=== PATIENT | male | born 1945 | race Caucasian/White ===

== ENCOUNTER 2016-09-03 10:03 | Outpatient (CLI) | payer MEDICARE, OTHER | END 2016-09-03 10:04 | disposition home or self-care (01) | DX: E78.5 Hyperlipidemia, unspecified (principal); E11.9 Type 2 diabetes mellitus without complications; I10 Essential (primary) hypertension ==

== ENCOUNTER 2016-12-17 13:21 | Outpatient (CLI) | payer MEDICARE, OTHER ==
[2016-12-17 19:00] LABS: HEMOGLOBIN A1C 0.9 g/dL
== END 2016-12-17 13:22 | disposition home or self-care (01) ==
LOC: LAB.N 13:21
PROVIDERS: ATTEND Nurse Practitioner Gerontology
DX: E11.9 Type 2 diabetes mellitus without complications (principal)
CPT/HCPCS: 36415; 83036

== ENCOUNTER 2017-05-05 23:56 | Outpatient (CLI) | payer MEDICARE, OTHER ==
[2017-05-05 13:00] LABS: CALCIUM 9.5 mg/dL (8.5-10.3)
[2017-05-05 13:38] LABS: HB2 TOTAL 15.7 g/dL; HEMOGLOBIN A1C 1.15 g/dL; HEMOGLOBIN A1C % 8.9 % (4.6-6.2)
== END 2017-05-05 23:57 | disposition home or self-care (01) ==
LOC: LAB.N 23:56
PROVIDERS: ATTEND Family Medicine
DX: E11.9 Type 2 diabetes mellitus without complications (principal); I10 Essential (primary) hypertension
CPT/HCPCS: 36415; 80048; 83036

== ENCOUNTER 2017-09-07 08:00 | Outpatient (CLI) | payer MEDICARE, OTHER ==
[2017-09-07 13:00] LABS: ALBUMIN 4.5 g/dL (3.2-5.5); ALBUMIN/GLOBULIN RATIO 1.4 (1.0-2.2); ALKALINE PHOSPHATASE 63 IU/L (42-121); ALT ALANINE AMINOTRANSFERASE 14 IU/L (10-60); AST ASPARTATE AMINOTRANSFERASE 18 IU/L (10-42); BILIRUBIN,TOTAL 1.2 mg/dL (0.2-1.0); BUN - BLOOD UREA NITROGEN 14 mg/dL (6-20); CALCIUM 9.1 mg/dL (8.5-10.3); CARBON DIOXIDE - CO2 27 mmol/L (21-32); CHLORIDE 100 mmol/L (101-111); CHOLESTEROL 102 mg/dL; CREATININE 0.7 mg/dL (0.6-1.2); GFR - MDRD 111 (>89); GLUCOSE 142 mg/dL (70-100); HDL CHOLESTEROL 34 mg/dL; LDL CHOLESTEROL,CALCULATED 48 mg/dL; LDL/HDL RATIO 1.4 (<3.6); SODIUM 135 mmol/L (135-145); TOTAL PROTEIN 7.7 g/dL (6.7-8.2); VLDL CHOLESTEROL 20 mg/dL
[2017-09-07 13:07] LABS: BASOPHILS # (AUTO) 0.1 10^3/uL (0.0-0.1); BASOPHILS % (AUTO) 0.6 %; EOSINOPHILS # (AUTO) 0.2 10^3/uL (0.0-0.7); EOSINOPHILS % (AUTO) 1.2 %; HEMOGLOBIN A1C 1.1 g/dL; HEMOGLOBIN A1C % 8.4 % (4.6-6.2); HGB - HEMOGLOBIN 14.1 g/dL (14.0-18.0); LYMPHOCYTES # (AUTO) 1.2 10^3/uL (1.5-3.5); LYMPHOCYTES % (AUTO) 9.2 %; MEAN CORPUSCULAR HEMOGLOBIN 20.8 pg (27.0-31.0); MEAN CORPUSCULAR HGB CONC 31.1 g/dL (32.0-36.0); MEAN PLATELET VOLUME 8.9 fL (7.4-11.4); MONOCYTES # (AUTO) 1.3 10^3/uL (0.0-1.0); MONOCYTES % (AUTO) 9.5 %; NEUTROPHILS # (AUTO) 10.7 10^3/uL (1.5-6.6); NEUTROPHILS % (AUTO) 79.5 %; PLT - PLATELET COUNT 275 10^3/uL (130-450); RED BLOOD COUNT 6.79 10^6/uL (4.70-6.10); RED CELL DISTRIBUTION WIDTH 16.2 % (12.0-15.0); WHITE BLOOD COUNT 13.5 x10^3/uL (4.8-10.8)
== END 2017-09-07 08:01 | disposition home or self-care (01) ==
LOC: LAB.N 08:00
PROVIDERS: ATTEND Family Medicine
DX: E11.9 Type 2 diabetes mellitus without complications (principal); I10 Essential (primary) hypertension; E78.5 Hyperlipidemia, unspecified; Z79.4 Long term (current) use of insulin
CPT/HCPCS: 36415; 80053; 80061; 83036; 83721; 85025

== ENCOUNTER 2017-10-07 08:00 | Outpatient (CLI) | payer MEDICARE, OTHER ==
[2017-10-07 12:50] LABS: BASOPHILS # (AUTO) 0.1 10^3/uL (0.0-0.1); BASOPHILS % (AUTO) 1.2 %; EOSINOPHILS # (AUTO) 0.3 10^3/uL (0.0-0.7); EOSINOPHILS % (AUTO) 3.2 %; LYMPHOCYTES # (AUTO) 1.3 10^3/uL (1.5-3.5); LYMPHOCYTES % (AUTO) 14.5 %; MEAN CORPUSCULAR HEMOGLOBIN 21.1 pg (27.0-31.0); MEAN CORPUSCULAR HGB CONC 30.6 g/dL (32.0-36.0); MEAN CORPUSCULAR VOLUME 68.8 fL (80.0-94.0); MEAN PLATELET VOLUME 8.9 fL (7.4-11.4); MEAN RETIC VALUE 98.5; MONOCYTES # (AUTO) 0.8 10^3/uL (0.0-1.0); MONOCYTES % (AUTO) 8.6 %; NEUTROPHILS # (AUTO) 6.6 10^3/uL (1.5-6.6); NEUTROPHILS % (AUTO) 72.5 %; PLT - PLATELET COUNT 254 10^3/uL (130-450); RED BLOOD COUNT 6.64 10^6/uL (4.70-6.10); RED CELL DISTRIBUTION WIDTH 16.4 % (12.0-15.0); WHITE BLOOD COUNT 9.1 x10^3/uL (4.8-10.8)
[2017-10-07 13:19] LABS: % IRON SATURATION 29 % (20-50); IRON 82 ug/dL (45-182); TOTAL IRON BINDING CAPACITY 284 ug/dL (250-450); TRANSFERRIN 203 mg/dL (180-329)
[2017-10-07 15:32] LABS: FERRITIN 144.4 ng/mL (23.9-336.2)
[2017-10-07 15:36] LABS: FOLATE 12.7 ng/mL (5.90 - >24.8)
== END 2017-10-07 23:59 | disposition home or self-care (01) ==
LOC: LAB.N 08:00
PROVIDERS: ATTEND Family Medicine
DX: D64.9 Anemia, unspecified (principal)
CPT/HCPCS: 36415; 82607; 82728; 82746; 83540; 84466; 85025; 85044

== ENCOUNTER 2017-12-16 08:00 | Outpatient (CLI) | payer MEDICARE, OTHER ==
[2017-12-16 12:18] LABS: CALCIUM 9.1 mg/dL (8.5-10.3); CREATININE 0.9 mg/dL (0.6-1.2)
[2017-12-16 12:25] LABS: BASOPHILS # (AUTO) 0.1 10^3/uL (0.0-0.1); BASOPHILS % (AUTO) 0.9 %; EOSINOPHILS # (AUTO) 0.3 10^3/uL (0.0-0.7); EOSINOPHILS % (AUTO) 3.2 %; HGB - HEMOGLOBIN 14.2 g/dL (14.0-18.0); LYMPHOCYTES # (AUTO) 1.5 10^3/uL (1.5-3.5); LYMPHOCYTES % (AUTO) 15.4 %; MEAN CORPUSCULAR HEMOGLOBIN 21.2 pg (27.0-31.0); MEAN CORPUSCULAR HGB CONC 31.7 g/dL (32.0-36.0); MEAN CORPUSCULAR VOLUME 66.9 fL (80.0-94.0); MONOCYTES # (AUTO) 1.1 10^3/uL (0.0-1.0); MONOCYTES % (AUTO) 10.6 %; NEUTROPHILS % (AUTO) 69.9 %; PLT - PLATELET COUNT 270 10^3/uL (130-450); RED BLOOD COUNT 6.69 10^6/uL (4.70-6.10); RED CELL DISTRIBUTION WIDTH 16.4 % (12.0-15.0)
[2017-12-16 13:26] LABS: HB2 TOTAL 15.6 g/dL; HEMOGLOBIN A1C 1.13 g/dL; HEMOGLOBIN A1C % 8.8 % (4.6-6.2)
== END 2017-12-16 08:01 ==
LOC: LAB.N 08:00
PROVIDERS: ATTEND Family Medicine
DX: E11.9 Type 2 diabetes mellitus without complications (principal); Z79.4 Long term (current) use of insulin; D72.89 Other specified disorders of white blood cells
CPT/HCPCS: 36415; 80048; 83036; 85025

== ENCOUNTER 2018-04-07 08:42 | Outpatient (CLI) | payer MEDICARE, OTHER ==
[2018-04-07 13:47] LABS: CALCIUM 8.7 mg/dL (8.5-10.3); CREATININE 0.9 mg/dL (0.6-1.2)
[2018-04-07 13:55] LABS: HB2 TOTAL 14.6 g/dL; HEMOGLOBIN A1C 0.96 g/dL; HEMOGLOBIN A1C % 8.2 % (4.6-6.2)
== END 2018-04-07 23:59 | disposition home or self-care (01) ==
LOC: LAB.N 08:42
PROVIDERS: ATTEND Family Medicine
DX: D50.9 Iron deficiency anemia, unspecified (principal); E11.9 Type 2 diabetes mellitus without complications
CPT/HCPCS: 36415; 80048; 82728; 83036

== ENCOUNTER 2018-07-20 08:00 | Outpatient (CLI) | payer MEDICARE, OTHER ==
[2018-07-20 13:25] LABS: CALCIUM 9.2 mg/dL (8.5-10.3)
[2018-07-20 13:41] LABS: HB2 TOTAL 15.1 g/dL; HEMOGLOBIN A1C 1.07 g/dL; HEMOGLOBIN A1C % 8.6 % (4.6-6.2)
[2018-07-20 13:52] LABS: BASOPHILS # (AUTO) 0.2 10^3/uL (0.0-0.1); BASOPHILS % (AUTO) 2.1 %; EOSINOPHILS # (AUTO) 0.4 10^3/uL (0.0-0.7); EOSINOPHILS % (AUTO) 3.9 %; HGB - HEMOGLOBIN 13.8 g/dL (14.0-18.0); LYMPHOCYTES # (AUTO) 1.9 10^3/uL (1.5-3.5); LYMPHOCYTES % (AUTO) 21.1 %; MEAN CORPUSCULAR HEMOGLOBIN 20.9 pg (27.0-31.0); MEAN CORPUSCULAR HGB CONC 31.2 g/dL (32.0-36.0); MEAN PLATELET VOLUME 8.9 fL (7.4-11.4); MONOCYTES % (AUTO) 10.5 %; NEUTROPHILS # (AUTO) 5.7 10^3/uL (1.5-6.6); NEUTROPHILS % (AUTO) 62.4 %; PLT - PLATELET COUNT 261 10^3/uL (130-450); RED BLOOD COUNT 6.59 10^6/uL (4.70-6.10); RED CELL DISTRIBUTION WIDTH 16.1 % (12.0-15.0); WHITE BLOOD COUNT 9.1 x10^3/uL (4.8-10.8)
== END 2018-07-20 23:59 | disposition home or self-care (01) ==
LOC: LAB.N 08:00
PROVIDERS: ATTEND Physician Assistant Medical
DX: D50.9 Iron deficiency anemia, unspecified (principal); E11.9 Type 2 diabetes mellitus without complications
CPT/HCPCS: 36415; 80048; 82728; 83036; 85025

== ENCOUNTER 2018-10-17 08:00 | Outpatient (CLI) | payer MEDICARE, OTHER ==
[2018-10-17 12:29] LABS: CHOL/HDL RATIO 3.3 (<5.0); CHOLESTEROL 114 mg/dL; HDL CHOLESTEROL 35 mg/dL; LDL CHOLESTEROL,CALCULATED 56 mg/dL; LDL/HDL RATIO 1.6 (<3.6); VLDL CHOLESTEROL 23 mg/dL
== END 2018-10-17 08:01 | disposition home or self-care (01) ==
LOC: LAB.N 08:00
PROVIDERS: ATTEND Physician Assistant Medical
DX: E78.5 Hyperlipidemia, unspecified (principal)
CPT/HCPCS: 36415; 80061; 83721

== ENCOUNTER 2019-03-21 13:26 | Outpatient (CLI) | payer MEDICARE, OTHER ==
[2019-03-21 18:53] LABS: HB2 TOTAL 14.2 g/dL; HEMOGLOBIN A1C 1.12 g/dL; HEMOGLOBIN A1C % 9.4 % (4.6-6.2)
[2019-03-21 19:10] LABS: CREATININE,URINE 112.2 mg/dL; MICROALBUMIN,URINE 70.8 mg/dL (0-300.0)
== END 2019-03-21 23:59 | disposition home or self-care (01) ==
LOC: LAB.N 13:26
PROVIDERS: ATTEND Physician Assistant Medical
DX: E11.9 Type 2 diabetes mellitus without complications (principal)
CPT/HCPCS: 36415; 82043; 82570; 83036

== ENCOUNTER 2019-12-05 08:35 | Outpatient (CLI) | payer MEDICARE, OTHER ==
[2019-12-05 11:49] LABS: BASOPHILS # (AUTO) 0.1 10^3/uL (0.0-0.1); BASOPHILS % (AUTO) 0.7 %; EOSINOPHILS # (AUTO) 0.3 10^3/uL (0.0-0.7); EOSINOPHILS % (AUTO) 3.4 %; HGB - HEMOGLOBIN 14.4 g/dL (14.0-18.0); LYMPHOCYTES # (AUTO) 1.6 10^3/uL (1.5-3.5); LYMPHOCYTES % (AUTO) 16.2 %; MEAN CORPUSCULAR HEMOGLOBIN 20.9 pg (27.0-31.0); MEAN CORPUSCULAR HGB CONC 30.1 g/dL (32.0-36.0); MEAN CORPUSCULAR VOLUME 69.6 fL (80.0-94.0); MEAN PLATELET VOLUME 10.4 fL (7.4-11.4); MONOCYTES % (AUTO) 10.3 %; NEUTROPHILS # (AUTO) 6.7 10^3/uL (1.5-6.6); NEUTROPHILS % (AUTO) 68.8 %; PLT - PLATELET COUNT 318 10^3/uL (130-450); RED BLOOD COUNT 6.88 10^6/uL (4.70-6.10); RED CELL DISTRIBUTION WIDTH 18.6 % (12.0-15.0); WHITE BLOOD COUNT 9.8 x10^3/uL (4.8-10.8)
[2019-12-05 12:09] LABS: PLATELET ESTIMATE, MANUAL NORMAL (130-450,000) (NORMAL); PLATELET MORPHOLOGY NORMAL APPEARANCE (NORMAL); RBC MORPHOLOGY (MULTIPLE) 1+ MICROCYTOSIS (NORMAL)
[2019-12-05 12:28] LABS: ALBUMIN 4.2 g/dL (3.2-5.5); ALBUMIN/GLOBULIN RATIO 1.3 (1.0-2.2); ALKALINE PHOSPHATASE 60 IU/L (42-121); ALT ALANINE AMINOTRANSFERASE 17 IU/L (10-60); AST ASPARTATE AMINOTRANSFERASE 15 IU/L (10-42); BILIRUBIN,TOTAL 0.5 mg/dL (0.2-1.0); BUN - BLOOD UREA NITROGEN 26 mg/dL (6-20); CALCIUM 9.4 mg/dL (8.5-10.3); CARBON DIOXIDE - CO2 27 mmol/L (21-32); CHLORIDE 102 mmol/L (101-111); CHOLESTEROL 94 mg/dL; GLUCOSE 147 mg/dL (70-100); HDL CHOLESTEROL 31 mg/dL; LDL CHOLESTEROL,CALCULATED 42 mg/dL; LDL/HDL RATIO 1.4 (<3.6); SODIUM 136 mmol/L (135-145); TOTAL PROTEIN 7.5 g/dL (6.7-8.2); VLDL CHOLESTEROL 21 mg/dL
[2019-12-05 12:46] LABS: CREATININE,URINE 143.2 mg/dL; MICROALBUM/CREATININE RATIO,UR 164.8 ug/mg (<30.0); MICROALBUMIN,URINE 23.6 mg/dL (0-300.0)
[2019-12-05 20:07] LABS: HB2 TOTAL 15.2 g/dL; HEMOGLOBIN A1C 1.26 g/dL; HEMOGLOBIN A1C % 9.7 % (4.6-6.2)
== END 2019-12-05 08:36 | disposition home or self-care (01) ==
LOC: LAB.WCP 08:35
PROVIDERS: ATTEND Family Medicine
DX: E11.9 Type 2 diabetes mellitus without complications (principal); Z12.5 Encounter for screening for malignant neoplasm of prostate; I25.10 Atherosclerotic heart disease of native coronary artery without angina pectoris; Z79.4 Long term (current) use of insulin; E78.5 Hyperlipidemia, unspecified
CPT/HCPCS: 36415; 80053; 80061; 82043; 82570; 83036; 84443; 85025; G0103; 83721; 84153

== ENCOUNTER 2020-03-05 08:00 | Outpatient (CLI) | payer MEDICARE, OTHER ==
[2020-03-05 12:13] LABS: CALCIUM 9.7 mg/dL (8.5-10.3); CREATININE 1.1 mg/dL (0.6-1.2)
[2020-03-05 13:15] LABS: HEMOGLOBIN A1c% 9.3 % (4.27-6.07)
== END 2020-03-05 23:59 | disposition home or self-care (01) ==
LOC: LAB.WCP 08:00
PROVIDERS: ATTEND Family Medicine
DX: E11.9 Type 2 diabetes mellitus without complications (principal)
CPT/HCPCS: 36415; 80048; 83036

== ENCOUNTER 2020-05-27 08:00 | Outpatient (CLI) | payer MEDICARE, OTHER ==
[2020-05-27 14:21] LABS: CALCIUM 9.6 mg/dL (8.5-10.3); CREATININE 1.1 mg/dL (0.6-1.2)
[2020-05-27 15:07] LABS: HEMOGLOBIN A1c% 8.8 % (4.27-6.07)
== END 2020-05-27 23:59 | disposition home or self-care (01) ==
LOC: LAB.WCP 08:00
PROVIDERS: ATTEND Family Medicine
DX: I10 Essential (primary) hypertension (principal); E11.9 Type 2 diabetes mellitus without complications
CPT/HCPCS: 36415; 80048; 83036

== ENCOUNTER 2020-07-07 16:26 | Outpatient (CLI) | payer MEDICARE, OTHER | END 2020-07-07 16:27 | disposition home or self-care (01) | LOC: COV 16:26 | PROVIDERS: ATTEND Ophthalmology | DX: Z01.812 Encounter for preprocedural laboratory examination (principal); H25.11 Age-related nuclear cataract, right eye; Z20.822 Contact with and (suspected) exposure to COVID-19 ==

== ENCOUNTER 2020-07-10 08:11 | Day surgery (SDC) | payer MEDICARE, OTHER ==
[~2020-07-10 08:11] MED LIST: KETOROLAC 0.45% OPHTH DROPS ONE; PHENYLEPHRINE 2.5% OPHTH 2 ML DROPS ONE; PROPARACAINE 0.5% OPHTH DROPS 15 ML ONE
[2020-07-10] MEDS ORDERED: LACTATED RINGERS 500 ML IV ONE ×2 (08:30→09:55)
[2020-07-10] MEDS ORDERED: CYCLOPENTOLATE 2% OPHTH DROPS 2 ML RIGHTEYE ONE (08:30)
--- NOTE | 2020-07-10 09:01 | ANESTHESIA ---
Pre-Anesthesia VS, & Labs - Diagnosis right eye nuclear sclerotic cataract - Procedure right eye cataract extraction with IOL implant Vital Signs: Temp Pulse Resp BP Pulse Ox 36.3 C L 69 16 152/79 H 95 07/10/20 08:21 07/10/20 08:21 07/10/20 08:21 07/10/20 08:21 07/10/20 08:21 Height: 5 ft 5 in Weight (kg): 60.4 kg Body Mass Index: 22.1 BMI Classification: Healthy weight - NPO >8 hours - Lab Results Current Lab Results: Laboratory Tests 07/10/20 08:36: POC Whole Bld Glucose 106 H Home Medications and Allergies Home Medications: Ambulatory Orders Empagliflozin [Jardiance] 10 mg PO DAILY 07/09/20 Insulin Glargine [Lantus Solostar] 22 units SQ DAILY 07/09/20 Losartan [Cozaar] 25 mg PO DAILY 07/09/20 Aspirin 81 mg PO DAILY 10/12/12 Atorvastatin Calcium 40 mg PO DAILY 10/12/12 Glipizide [Glipizide Xl] 10 mg PO DAILY 10/12/12 Metformin HCl [Glucophage Xr] 1,000 mg PO BID 10/12/12 Metoprolol Succinate 100 mg PO DAILY 10/12/12 Telmisartan [Micardis] 20 mg PO DAILY 10/12/12 Empagliflozin [Jardiance] 10 mg PO DAILY 07/09/20 Insulin Glargine [Lantus Solostar] 22 units SQ DAILY 07/09/20 Losartan [Cozaar] 25 mg PO DAILY 07/09/20 Allergies/Adverse Reactions: Allergies Allergy/AdvReac Type Severity Reaction Status Date / Time No Known Drug Allergies Allergy Verified 07/09/20 13:42 Anes History & Medical History - Anesthetic History Anesthesia Complications: reports: No previous complications - Medical History Cardiovascular: reports: Hypertension, High cholesterol, Coronary artery disease (s/p stent placement), [place] Pulmonary: reports: None Gastrointestinal: reports: None Urinary: reports: Kidney stones Neuro: reports: None Musculoskeletal: reports: None Endocrine/Autoimmune: reports: Type 2 diabetes Blood Disorders: reports: None Skin: reports: None Smoking Status: Current every day smoker (3-8 cigs per day) Psychosocial: reports: No issues indicated History of Cancer?: No - Surgical History General: reports: Hiatal hernia repair Eyes Ears Nose Throat (EENT): reports: Other Cardiothoracic: reports: Coronary stent Exam General: Alert, Oriented x3, Cooperative, No acute distress Dental: Dentures full Upper, Poor dentition Mouth Openin Fingerbreadth Neck Mobility: Normal Mallampati classification: II Mental/Cognitive Status: Alert/Oriented X3, Normal for patient Plan Anesthesia Type: MAC Consent for Procedure(s) Verified and Reviewed: Yes Code Status: Attempt Resuscitation ASA classification: 3-Severe systemic disease Is this case an emergency?: No
[2020-07-10] MEDS ORDERED: MIDAZOLAM 2 MG/2 ML VIAL ONE (09:27)
[2020-07-10] MEDS ORDERED: TRIAMCIN/MOXIFLOX OPHTHALMIC 0.6 ML VIAL IO ONE ×2 (09:34→09:42)
[2020-07-10] MEDS ORDERED: TIMOLOL 0.5% OPHTH DROPS ONE (09:35)
[2020-07-10] MEDS ORDERED: BRIMONIDINE 0.2% OPHTH DROPS 5 ML ONE (09:35)
[2020-07-10] MEDS ORDERED: VANCOMYCIN OPHTHALMI 8MG/0.8ML 8 MG/0.8 ML SYRINGE IO ONE ×2 (09:35→09:42)
[2020-07-10] MEDS ORDERED: EPINEPHrine 1 MG/ML AMP ONE (09:35)
[2020-07-10] MEDS ORDERED: TIMOLOL 0.5% OPHTH DROPS OPTH ONE (09:41)
[2020-07-10] MEDS ORDERED: EPINEPHrine 1 MG/ML AMP IR ONE (09:41)
[2020-07-10] MEDS ORDERED: CHONDR SULF/HYALURONATE SYRINGE IO ONE (09:41)
[2020-07-10] MEDS ORDERED: BRIMONIDINE 0.2% OPHTH DROPS 5 ML OPTH ONE (09:41)
[2020-07-10] MEDS ORDERED: BSS/LIDOCAINE/EPINEPHRINE 1 ML SYRINGE IO ONE (09:42)
[2020-07-10] MEDS ORDERED: PROPARACAINE 0.5% OPHTH DROPS 15 ML EACHEYE ONE (09:42)
--- NOTE | 2020-07-10 10:12 | OPERATIVE REPORT ---
DATE OF SERVICE: 07/10/2020 Physician: Chavo Shipman MD PREOPERATIVE DIAGNOSIS: Visually significant cataract, right eye. Cataract surgery was performed on the left eye on 05/05/[address] Villanueva. POSTOPERATIVE DIAGNOSIS: Visually significant cataract, right eye. Cataract surgery was performed on the left eye on 05/05/[address] Villanueva. PROCEDURE PERFORMED: Phacoemulsification with posterior chamber intraocular lens implant, right eye. SURGEON: Chavo Shipman MD. ANESTHESIA: Monitored anesthesia care. COMPLICATIONS: None. OPERATIVE INDICATIONS: This is a 75-year-old man with progressive vision loss in the right eye due to 4+ nuclear sclerotic cataract. Best corrected visual acuity was 20/60 with glare to 20/800 in the right eye. Indications for surgery were overall decrease in vision, difficulty seeing words on a computer screen, difficulty reading, and difficulty tracking a golf ball. He was consented at length concerning the risks and benefits of cataract surgery, after which he expressed a desire to proceed with surgery. OPERATIVE PROCEDURE: The patient was taken into OR #3 and placed under monitored anesthesia care. A surgical timeout was conducted, confirming correct patient, correct procedure, and correct surgical site. He was given topical anesthesia and prepped and draped in usual sterile fashion. The eye was entered at the 12 and 9 o'clock positions. Intracameral Shugarcaine was injected into the anterior chamber followed by Viscoat. A continuous-tear curvilinear capsulorrhexis was performed. The nucleus was hydrodissected and phacoemulsified. The cortex was evacuated using automated infusion and aspiration. Provisc was injected in the capsular bag and a 20.0 diopter intraocular lens inserted in the bag. Infusion and aspiration were used to evacuate the viscoelastic materials. The eye was inflated to physiologic pressure using balanced salt solution and found to be watertight. Approximately 0.25 mL of a mixture of triamcinolone and moxifloxacin was injected transsclerally into the vitreous in the inferotemporal quadrant. An additional 0.55 mL of a mixture of triamcinolone, moxifloxacin, and vancomycin was injected subconjunctivally in the superior quadrant for infection and inflammation prophylaxis. Wound integrity was checked with Weck-Shefali sponges. The patient was taken from the operating room in good condition and given postoperative instructions. TD: 07/10/2020 10:05 KOBE
[2020-07-10 10:13] VITALS: BP 188/69
--- NOTE | 2020-07-10 10:43 | ANESTHESIA POST OP EVALUATION ---
Anesthesia Post Eval - Post Anesthesia Eval Vitals: Last Vital Signs Temp 36.4 C L 07/10/20 10:12 Pulse 89 07/10/20 10:12 Resp 14 07/10/20 10:12 BP 188/69 H 07/10/20 10:12 Pulse Ox 99 07/10/20 10:12 CV Function Including HR & BP: positive: Stable Pain Control: positive: Satisfactory Nausea & Vomiting: positive: Negative Mental Status: positive: Baseline Respiratory Status: Airway Patent Hydration Status: Satisfactory Anesthesia Complications: positive: None
== END 2020-07-10 08:12 | disposition home or self-care (01) ==
LOC: SDS 08:11
PROVIDERS: ATTEND Ophthalmology
DX: E11.36 Type 2 diabetes mellitus with diabetic cataract (principal); H25.11 Age-related nuclear cataract, right eye; I10 Essential (primary) hypertension; I25.2 Old myocardial infarction; Z79.4 Long term (current) use of insulin; Z98.42 Cataract extraction status, left eye; I25.10 Atherosclerotic heart disease of native coronary artery without angina pectoris; Z95.5 Presence of coronary angioplasty implant and graft; F17.210 Nicotine dependence, cigarettes, uncomplicated
CPT/HCPCS: 66984; A9270; J3490; J7120; V2632

== ENCOUNTER 2020-11-10 08:00 | Outpatient (CLI) | payer MEDICARE, OTHER ==
[2020-11-10 12:55] LABS: CALCIUM 9.7 mg/dL (8.5-10.3); POTASSIUM 4.4 mmol/L (3.5-5.0)
[2020-11-10 19:26] LABS: ESTIMATED AVERAGE GLUCOSE 174 mg/dL (70-100); HEMOGLOBIN A1c% 7.7 % (4.27-6.07)
== END 2020-11-10 23:59 | disposition home or self-care (01) ==
LOC: LAB.WCP 08:00
PROVIDERS: ATTEND Family Medicine
DX: I10 Essential (primary) hypertension (principal); E11.9 Type 2 diabetes mellitus without complications
CPT/HCPCS: 36415; 80048; 83036

== ENCOUNTER 2020-11-14 08:14 | Outpatient (CLI) | payer MEDICARE, OTHER ==
--- NOTE | 2020-11-14 13:04 | XRAY Report ---
PROCEDURE: Hip w/Pelvis 2-3V RT INDICATIONS: RT HIP PAIN TECHNIQUE: AP pelvis with lateral view(s) of the right hip(s). COMPARISON: None. FINDINGS: Bones: No fractures or dislocations. Moderate right worse than left bilateral hip joint osteoarthri tic changes are seen. No evidence of avascular necrosis of femoral head. Pelvic ring appears intact. No suspicious bony lesions. Degenerative disc disease in visualized lower lumbar spine is seen. Soft tissues: The visualized bowel gas pattern is normal. No suspicious soft tissue calcifications. 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 No fracture or disloca tion. No evidence of avascular necrosis. Reviewed by: Amor Puente MD on 11/14/2020 1:03 PM PDT Approved by: Amor Puente MD on 11/14/2020 1:03 PM PDT Station ID: [id number]
== END 2020-11-14 08:15 | disposition home or self-care (01) ==
LOC: DI 08:14
PROVIDERS: ATTEND Family Medicine
DX: M17.0 Bilateral primary osteoarthritis of knee (principal)

== ENCOUNTER 2020-11-18 14:39 | Outpatient (CLI) | payer MEDICARE, OTHER ==
--- NOTE | 2020-11-19 10:34 | Ultrasound Report ---
PROCEDURE: Aorta Screening INDICATIONS: SCREENING FOR CARDIOVASCULAR DISEASE, CLAUDICATION TECHNIQUE: Real time scanning was performed of the aorta and iliac arteries, with image documentatio n. COMPARISON: None FINDINGS: Aorta: Proximal aortic diameter measures 2.2 x 2.9 cm. Mid-aorta measures 1.8 x 2.0 cm. Distal aor tic diameter is 2.4 x 2.2 cm. Severe atherosclerotic changes noted in the abdominal aorta which may c ause much is 80% stenosis of the mid segment. Iliac arteries: Right common iliac artery measures 1.4 cm. Left common iliac artery measures 1.2 cm . Atherosclerotic changes noted in the iliac arteries bilaterally. High-grade, greater than 90% steno sis of the right common iliac artery noted. IMPRESSION: No evidence of abdominal aortic aneurysm. High-grade, 80% stenosis of the mid abdominal aorta and approximately 90% stenosis right common iliac artery. Recommend MR angiography or MR CT angiogram for further evaluation if clinically indicated. Reviewed by: Christie Diaz MD, PhD on 11/19/2020 10:32 AM PDT Approved by: Christie Diaz MD, PhD on 11/19/2020 10:32 AM PDT Station ID: [id number]
--- NOTE | 2020-11-19 11:12 | Ultrasound Report ---
PROCEDURE: Duplex Lwr Ext Arterial Bilat INDICATIONS: SCREENING FOR CARDIOVASCULAR DISEASE, CLAUDICATION TECHNIQUE: Color and pulse Doppler interrogation was performed of both lower extremity arterial systems, with im age documentation. COMPARISON: None FINDINGS: Right lower extremity: Common femoral artery: 31 cm/sec, with monophasic flow. Deep femoral artery: 16 cm/sec, with monophasic flow. Proximal superficial femoral artery: 28 cm/sec, with monophasic flow. Mid superficial femoral artery: 38 cm/sec, with monophasic flow. Distal superficial femoral artery: 19 cm/sec, with monophasic flow. Popliteal artery: 17 cm/sec, with monophasic flow. Posterior tibial artery: 22 cm/sec, with monophasic flow. Anterior tibial artery/dorsalis pedis: 48/not identified cm/sec, with monophasic/not identified flow . Coats-scale imaging description: Severe atherosclerotic changes are noted. Left lower extremity: Common femoral artery: 100 cm/sec, with biphasic flow. Deep femoral artery: 92 cm/sec, with biphasic flow. Proximal superficial femoral artery: 155 cm/sec, with biphasic flow. Mid superficial femoral artery: 230 cm/sec, with biphasic flow. Distal superficial femoral artery: 81 cm/sec, with biphasic flow. Popliteal artery: 63 cm/sec, with biphasic flow. Posterior tibial artery: 57 cm/sec, with biphasic flow. Anterior tibial artery/dorsalis pedis: 53/8 cm/sec, with biphasic/monophasic flow. Coats-scale imaging description: Severe atherosclerotic changes are noted. IMPRESSION: 1. Monophasic tardus parvus waveforms in the right lower extremity consistent with inflow disease. Pl ease note that separately performed aorta screening demonstrates a 90% stenosis of the right common i liac artery explaining the above findings. 2. Focal elevated velocity in the proximal/mid SFA consistent with a focal stenosis. 3. Blunted flow velocity waveforms in the left dorsalis pedis consistent with focal disease. 4. Recommend MR angiogram or CT angiogram for further evaluation if clinically indicated. Reviewed by: Red Sanchez on 11/19/2020 11:11 AM PDT Approved by: Red Sanchez on 11/19/2020 11:11 AM PDT Station ID: [id number]
== END 2020-11-18 14:40 | disposition home or self-care (01) ==
LOC: DI 14:39
PROVIDERS: ATTEND Family Medicine
DX: Z13.6 Encounter for screening for cardiovascular disorders (principal); R93.6 Abnormal findings on diagnostic imaging of limbs; I71.3 Abdominal aortic aneurysm, ruptured; I70.8 Atherosclerosis of other arteries
CPT/HCPCS: 93925

== ENCOUNTER 2021-02-13 08:00 | Outpatient (CLI) | payer MEDICARE, OTHER ==
[2021-02-13 11:47] LABS: BASOPHILS # (AUTO) 0.1 10^3/uL (0.0-0.1); BASOPHILS % (AUTO) 1.2 %; EOSINOPHILS # (AUTO) 0.3 10^3/uL (0.0-0.7); EOSINOPHILS % (AUTO) 3.8 %; HCT - HEMATOCRIT 50.1 % (42.0-52.0); HGB - HEMOGLOBIN 14.6 g/dL (14.0-18.0); LYMPHOCYTES # (AUTO) 1.4 10^3/uL (1.5-3.5); LYMPHOCYTES % (AUTO) 16.9 %; MEAN CORPUSCULAR HEMOGLOBIN 20.2 pg (27.0-31.0); MEAN CORPUSCULAR HGB CONC 29.1 g/dL (32.0-36.0); MEAN CORPUSCULAR VOLUME 69.2 fL (80.0-94.0); MEAN PLATELET VOLUME 10.1 fL (7.4-11.4); MONOCYTES # (AUTO) 0.9 10^3/uL (0.0-1.0); MONOCYTES % (AUTO) 10.8 %; NEUTROPHILS # (AUTO) 5.5 10^3/uL (1.5-6.6); NEUTROPHILS % (AUTO) 66.9 %; PLT - PLATELET COUNT 326 10^3/uL (130-450); RED BLOOD COUNT 7.24 10^6/uL (4.70-6.10); RED CELL DISTRIBUTION WIDTH 19.5 % (12.0-15.0); WHITE BLOOD COUNT 8.2 x10^3/uL (4.8-10.8)
[2021-02-13 11:49] LABS: SLIDE REVIEW? Indicated
[2021-02-13 12:18] LABS: ALBUMIN 4.4 g/dL (3.2-5.5); ALBUMIN/GLOBULIN RATIO 1.4 (1.0-2.2); ALKALINE PHOSPHATASE 48 IU/L (42-121); ALT ALANINE AMINOTRANSFERASE 14 IU/L (10-60); AST ASPARTATE AMINOTRANSFERASE 15 IU/L (10-42); BILIRUBIN,TOTAL 0.7 mg/dL (0.2-1.0); BUN - BLOOD UREA NITROGEN 25 mg/dL (6-20); CALCIUM 9.8 mg/dL (8.5-10.3); CARBON DIOXIDE - CO2 26 mmol/L (21-32); CHLORIDE 106 mmol/L (101-111); CHOLESTEROL 94 mg/dL; CREATININE 0.9 mg/dL (0.6-1.2); GFR - MDRD 82 (>89); GLUCOSE 98 mg/dL (70-100); HDL CHOLESTEROL 31 mg/dL; LDL CHOLESTEROL,CALCULATED 47 mg/dL; LDL/HDL RATIO 1.5 (<3.6); POTASSIUM 4.3 mmol/L (3.5-5.0); SODIUM 143 mmol/L (135-145); TOTAL PROTEIN 7.5 g/dL (6.7-8.2); TRIGLYCERIDES 82 mg/dL; VLDL CHOLESTEROL 16 mg/dL
[2021-02-13 12:27] LABS: THYROID STIMULATING HORMONE 1.85 uIU/mL (0.34-5.60)
[2021-02-13 12:34] LABS: ESTIMATED AVERAGE GLUCOSE 174 mg/dL (70-100); HEMOGLOBIN A1c% 7.7 % (4.27-6.07)
[2021-02-13 12:45] LABS: MICROALBUM/CREATININE RATIO,UR 140.4 ug/mg (<30.0)
[2021-02-13 13:46] LABS: PLATELET ESTIMATE, MANUAL NORMAL (130-450,000) (NORMAL); PLATELET MORPHOLOGY NORMAL APPEARANCE (NORMAL); RBC MORPHOLOGY (MULTIPLE) 1+ MICROCYTOSIS (NORMAL)
== END 2021-02-13 23:59 | disposition home or self-care (01) ==
LOC: LAB.WCP 08:00
PROVIDERS: ATTEND Family Medicine
DX: I73.9 Peripheral vascular disease, unspecified (principal); I70.0 Atherosclerosis of aorta; E11.9 Type 2 diabetes mellitus without complications; E78.5 Hyperlipidemia, unspecified
CPT/HCPCS: 36415; 80053; 80061; 82043; 82570; 83036; 83721; 84443; 85025

== ENCOUNTER 2021-05-18 07:00 | Outpatient (CLI) | payer MEDICARE, OTHER ==
[2021-05-18 12:14] LABS: CALCIUM 9.4 mg/dL (8.5-10.3); POTASSIUM 4.4 mmol/L (3.5-5.0)
[2021-05-18 12:25] LABS: CREATININE,URINE 164.2 mg/dL; MICROALBUM/CREATININE RATIO,UR 149.8 ug/mg (<30.0); MICROALBUMIN,URINE 24.6 mg/dL (0-300.0)
[2021-05-18 15:27] LABS: ESTIMATED AVERAGE GLUCOSE 171 mg/dL (70-100); HEMOGLOBIN A1c% 7.6 % (4.27-6.07)
== END 2021-05-18 23:59 | disposition home or self-care (01) ==
LOC: LAB.WCP 07:00
PROVIDERS: ATTEND Family Medicine
DX: I25.10 Atherosclerotic heart disease of native coronary artery without angina pectoris (principal); Z12.5 Encounter for screening for malignant neoplasm of prostate; E11.9 Type 2 diabetes mellitus without complications; E78.5 Hyperlipidemia, unspecified; I10 Essential (primary) hypertension
CPT/HCPCS: 36415; 80048; 82043; 82570; 83036; G0103; 84153

== ENCOUNTER 2021-08-14 07:30 | Outpatient (CLI) | payer MEDICARE, OTHER ==
[2021-08-14 12:36] LABS: BASOPHILS # (AUTO) 0.1 10^3/uL (0.0-0.1); EOSINOPHILS # (AUTO) 0.4 10^3/uL (0.0-0.7); EOSINOPHILS % (AUTO) 3.4 %; HCT - HEMATOCRIT 50.7 % (42.0-52.0); HGB - HEMOGLOBIN 15.5 g/dL (14.0-18.0); LYMPHOCYTES # (AUTO) 1.5 10^3/uL (1.5-3.5); LYMPHOCYTES % (AUTO) 14.2 %; MEAN CORPUSCULAR HEMOGLOBIN 21.1 pg (27.0-31.0); MEAN CORPUSCULAR HGB CONC 30.6 g/dL (32.0-36.0); MONOCYTES # (AUTO) 1.1 10^3/uL (0.0-1.0); MONOCYTES % (AUTO) 10.5 %; NEUTROPHILS # (AUTO) 7.6 10^3/uL (1.5-6.6); NEUTROPHILS % (AUTO) 70.4 %; PLT - PLATELET COUNT 296 10^3/uL (130-450); RED BLOOD COUNT 7.35 10^6/uL (4.70-6.10); RED CELL DISTRIBUTION WIDTH 19.2 % (12.0-15.0); WHITE BLOOD COUNT 10.7 x10^3/uL (4.8-10.8)
[2021-08-14 12:49] LABS: ALBUMIN 4.4 g/dL (3.2-5.5); ALBUMIN/GLOBULIN RATIO 1.4 (1.0-2.2); ALKALINE PHOSPHATASE 49 IU/L (42-121); ALT ALANINE AMINOTRANSFERASE 20 IU/L (10-60); AST ASPARTATE AMINOTRANSFERASE 21 IU/L (10-42); BILIRUBIN,TOTAL 0.7 mg/dL (0.2-1.0); BUN - BLOOD UREA NITROGEN 26 mg/dL (6-20); CALCIUM 9.4 mg/dL (8.5-10.3); CARBON DIOXIDE - CO2 25 mmol/L (21-32); CHLORIDE 104 mmol/L (101-111); CREATININE 1.2 mg/dL (0.6-1.2); GFR - MDRD 59 (>89); GLUCOSE 81 mg/dL (70-100); POTASSIUM 4.8 mmol/L (3.5-5.0); SODIUM 139 mmol/L (135-145); TOTAL PROTEIN 7.6 g/dL (6.7-8.2); TRIGLYCERIDES 123 mg/dL
[2021-08-14 12:50] LABS: CHOLESTEROL 87 mg/dL; HDL CHOLESTEROL 29 mg/dL; LDL CHOLESTEROL,CALCULATED 33 mg/dL; LDL/HDL RATIO 1.1 (<3.6); VLDL CHOLESTEROL 25 mg/dL
[2021-08-14 12:58] LABS: CREATININE,URINE 221.4 mg/dL; MICROALBUM/CREATININE RATIO,UR 106.6 ug/mg (<30.0); MICROALBUMIN,URINE 23.6 mg/dL (0-300.0)
[2021-08-14 13:04] LABS: THYROID STIMULATING HORMONE 2.42 uIU/mL (0.34-5.60)
[2021-08-14 16:36] LABS: ESTIMATED AVERAGE GLUCOSE 157 mg/dL (70-100); HEMOGLOBIN A1c% 7.1 % (4.27-6.07)
== END 2021-08-14 07:31 | disposition home or self-care (01) ==
LOC: LAB.N 07:30
PROVIDERS: ATTEND Family Medicine
DX: I10 Essential (primary) hypertension (principal); E11.9 Type 2 diabetes mellitus without complications; I73.9 Peripheral vascular disease, unspecified; I70.0 Atherosclerosis of aorta; Z79.4 Long term (current) use of insulin
CPT/HCPCS: 36415; 80053; 80061; 81599; 82043; 82570; 83036; 83721; 84443; 85025

== ENCOUNTER 2021-11-13 07:27 | Outpatient (CLI) | payer MEDICARE, OTHER ==
[2021-11-13 12:23] LABS: ESTIMATED AVERAGE GLUCOSE 166 mg/dL (70-100); HEMOGLOBIN A1c% 7.4 % (4.27-6.07)
[2021-11-13 12:26] LABS: CALCIUM 9.4 mg/dL (8.5-10.3); POTASSIUM 4.4 mmol/L (3.5-5.0)
[2021-11-13 12:36] LABS: CREATININE,URINE 154.1 mg/dL; MICROALBUM/CREATININE RATIO,UR 101.2 ug/mg (<30.0); MICROALBUMIN,URINE 15.6 mg/dL (0-300.0)
== END 2021-11-13 07:28 | disposition home or self-care (01) ==
LOC: LAB.N 07:27
PROVIDERS: ATTEND Family Medicine
DX: E11.9 Type 2 diabetes mellitus without complications (principal); Z79.4 Long term (current) use of insulin
CPT/HCPCS: 36415; 80048; 82043; 82570; 83036

== ENCOUNTER 2022-02-19 07:48 | Outpatient (CLI) | payer MEDICARE, OTHER ==
[2022-02-19 12:04] LABS: BASOPHILS # (AUTO) 0.1 10^3/uL (0.0-0.1); BASOPHILS % (AUTO) 0.7 %; EOSINOPHILS # (AUTO) 0.2 10^3/uL (0.0-0.7); EOSINOPHILS % (AUTO) 1.2 %; HCT - HEMATOCRIT 51.2 % (42.0-52.0); LYMPHOCYTES # (AUTO) 1.9 10^3/uL (1.5-3.5); LYMPHOCYTES % (AUTO) 15.8 %; MEAN CORPUSCULAR HEMOGLOBIN 20.2 pg (27.0-31.0); MEAN CORPUSCULAR HGB CONC 29.3 g/dL (32.0-36.0); MEAN CORPUSCULAR VOLUME 69.1 fL (80.0-94.0); MEAN PLATELET VOLUME 10.7 fL (7.4-11.4); MONOCYTES % (AUTO) 7.9 %; NEUTROPHILS # (AUTO) 8.9 10^3/uL (1.5-6.6); NEUTROPHILS % (AUTO) 73.8 %; PLT - PLATELET COUNT 349 10^3/uL (130-450); RED BLOOD COUNT 7.41 10^6/uL (4.70-6.10); RED CELL DISTRIBUTION WIDTH 19.6 % (12.0-15.0); WHITE BLOOD COUNT 12.1 x10^3/uL (4.8-10.8)
[2022-02-19 12:23] LABS: CREATININE,URINE 119.2 mg/dL; MICROALBUM/CREATININE RATIO,UR 143.5 ug/mg (<30.0); MICROALBUMIN,URINE 17.1 mg/dL (0-300.0)
[2022-02-19 12:27] LABS: ESTIMATED AVERAGE GLUCOSE 163 mg/dL (70-100); HEMOGLOBIN A1c% 7.3 % (4.27-6.07)
[2022-02-19 12:33] LABS: ALBUMIN 4.7 g/dL (3.2-5.5); ALBUMIN/GLOBULIN RATIO 1.6 (1.0-2.2); ALKALINE PHOSPHATASE 57 IU/L (42-121); ALT ALANINE AMINOTRANSFERASE 19 IU/L (10-60); AST ASPARTATE AMINOTRANSFERASE 23 IU/L (10-42); BUN - BLOOD UREA NITROGEN 22 mg/dL (6-20); CALCIUM 9.5 mg/dL (8.5-10.3); CARBON DIOXIDE - CO2 26 mmol/L (21-32); CHLORIDE 103 mmol/L (101-111); CHOL/HDL RATIO 2.6 (<5.0); CHOLESTEROL 102 mg/dL; GFR - MDRD 73 (>89); GLUCOSE 62 mg/dL (70-100); HDL CHOLESTEROL 39 mg/dL; LDL CHOLESTEROL,CALCULATED 41 mg/dL; LDL/HDL RATIO 1.1 (<3.6); SODIUM 138 mmol/L (135-145); TOTAL PROTEIN 7.6 g/dL (6.7-8.2); TRIGLYCERIDES 109 mg/dL; VLDL CHOLESTEROL 22 mg/dL
[2022-02-19 12:42] LABS: THYROID STIMULATING HORMONE 1.92 uIU/mL (0.34-5.60)
== END 2022-02-19 07:49 | disposition home or self-care (01) ==
LOC: LAB.N 07:48
PROVIDERS: ATTEND Family Medicine
DX: I10 Essential (primary) hypertension (principal); I73.9 Peripheral vascular disease, unspecified; I70.0 Atherosclerosis of aorta; E11.9 Type 2 diabetes mellitus without complications; E78.5 Hyperlipidemia, unspecified; Z79.4 Long term (current) use of insulin
CPT/HCPCS: 36415; 80053; 80061; 82043; 82570; 83036; 83721; 84443; 85025

== ENCOUNTER 2022-06-03 08:43 | Outpatient (CLI) | payer MEDICARE, OTHER ==
[2022-06-03 12:14] LABS: CALCIUM 9.8 mg/dL (8.5-10.3); CREATININE 1.1 mg/dL (0.6-1.2); POTASSIUM 4.6 mmol/L (3.5-5.0)
[2022-06-03 12:37] LABS: MICROALBUM/CREATININE RATIO,UR 173.5 ug/mg (<30.0); MICROALBUMIN,URINE 23.6 mg/dL (0-300.0)
[2022-06-03 12:50] LABS: ESTIMATED AVERAGE GLUCOSE 169 mg/dL (70-100); HEMOGLOBIN A1c% 7.5 % (4.27-6.07)
== END 2022-06-03 08:44 | disposition home or self-care (01) ==
LOC: LAB.N 08:43
PROVIDERS: ATTEND Family Medicine
DX: R80.9 Proteinuria, unspecified (principal); E11.9 Type 2 diabetes mellitus without complications
CPT/HCPCS: 36415; 80048; 82043; 82570; 83036

== ENCOUNTER 2022-12-30 10:28 | Outpatient (CLI) | payer MEDICARE, OTHER ==
[2022-12-30 17:45] LABS: CREATININE,URINE 77.4 mg/dL; MICROALBUM/CREATININE RATIO,UR 401.8 ug/mg (<30.0); MICROALBUMIN,URINE 31.1 mg/dL
[2022-12-30 17:47] LABS: ALBUMIN 4.5 g/dL (3.2-5.5); ALBUMIN/GLOBULIN RATIO 1.6 (1.0-2.2); ALKALINE PHOSPHATASE 70 IU/L (42-121); ALT ALANINE AMINOTRANSFERASE 14 IU/L (10-60); AST ASPARTATE AMINOTRANSFERASE 15 IU/L (10-42); BASOPHILS # (AUTO) 0.1 10^3/uL (0.0-0.1); BASOPHILS % (AUTO) 0.7 %; BILIRUBIN,TOTAL 0.7 mg/dL (0.2-1.0); BUN - BLOOD UREA NITROGEN 18 mg/dL (6-20); CALCIUM 10.1 mg/dL (8.5-10.3); CARBON DIOXIDE - CO2 24 mmol/L (21-32); CHLORIDE 102 mmol/L (101-111); CHOL/HDL RATIO 2.8 (<5.0); CHOLESTEROL 98 mg/dL; EOSINOPHILS # (AUTO) 0.1 10^3/uL (0.0-0.7); GFR - MDRD 73 (>89); GLUCOSE 110 mg/dL (74-104); HCT - HEMATOCRIT 51.6 % (42.0-52.0); HDL CHOLESTEROL 35 mg/dL; HGB - HEMOGLOBIN 15.3 g/dL (14.0-18.0); LDL CHOLESTEROL,CALCULATED 35 mg/dL; LYMPHOCYTES # (AUTO) 1.7 10^3/uL (1.5-3.5); LYMPHOCYTES % (AUTO) 14.4 %; MEAN CORPUSCULAR HEMOGLOBIN 20.4 pg (27.0-31.0); MEAN CORPUSCULAR HGB CONC 29.7 g/dL (32.0-36.0); MEAN CORPUSCULAR VOLUME 68.9 fL (80.0-94.0); MEAN PLATELET VOLUME 10.1 fL (7.4-11.4); MONOCYTES # (AUTO) 0.9 10^3/uL (0.0-1.0); MONOCYTES % (AUTO) 7.8 %; NEUTROPHILS # (AUTO) 8.7 10^3/uL (1.5-6.6); NEUTROPHILS % (AUTO) 75.7 %; PLT - PLATELET COUNT 340 10^3/uL (130-450); POTASSIUM 4.5 mmol/L (3.5-4.5); RED BLOOD COUNT 7.49 10^6/uL (4.70-6.10); RED CELL DISTRIBUTION WIDTH 19.1 % (12.0-15.0); SODIUM 136 mmol/L (135-145); TOTAL PROTEIN 7.3 g/dL (6.4-8.9); TRIGLYCERIDES 138 mg/dL (48-352); VLDL CHOLESTEROL 28 mg/dL; WHITE BLOOD COUNT 11.5 x10^3/uL (4.8-10.8)
[2022-12-30 18:05] LABS: THYROID STIMULATING HORMONE 1.83 uIU/mL (0.34-5.60)
[2022-12-30 18:35] LABS: SLIDE REVIEW? Indicated
[2022-12-30 18:36] LABS: PLATELET ESTIMATE, MANUAL NORMAL (130-450,000) (NORMAL); PLATELET MORPHOLOGY NORMAL APPEARANCE (NORMAL)
[2022-12-30 20:54] LABS: ESTIMATED AVERAGE GLUCOSE 163 mg/dL (70-100); HEMOGLOBIN A1c% 7.3 % (4.27-6.07)
== END 2022-12-30 10:29 | disposition home or self-care (01) ==
LOC: LAB.N 10:28
PROVIDERS: ATTEND Family Medicine
DX: E11.21 Type 2 diabetes mellitus with diabetic nephropathy (principal); I73.9 Peripheral vascular disease, unspecified; I70.0 Atherosclerosis of aorta; I25.10 Atherosclerotic heart disease of native coronary artery without angina pectoris; Z12.5 Encounter for screening for malignant neoplasm of prostate; E78.5 Hyperlipidemia, unspecified; I10 Essential (primary) hypertension
CPT/HCPCS: 36415; 80053; 80061; 82043; 82570; 83036; 84443; 85025; G0103; 83721; 84153

== ENCOUNTER 2023-04-29 07:53 | Outpatient (CLI) | payer MEDICARE, OTHER ==
[2023-04-29 12:26] LABS: ESTIMATED AVERAGE GLUCOSE 183 mg/dL (70-100)
[2023-04-29 12:42] LABS: CALCIUM 9.9 mg/dL (8.5-10.3); CREATININE 1.2 mg/dL (0.6-1.3); POTASSIUM 4.8 mmol/L (3.5-4.5)
[2023-04-29 12:44] LABS: CREATININE,URINE 107.4 mg/dL; MICROALBUM/CREATININE RATIO,UR 79.1 ug/mg (<30.0); MICROALBUMIN,URINE 8.5 mg/dL
== END 2023-04-29 07:54 | disposition home or self-care (01) ==
LOC: LAB.N 07:53
PROVIDERS: ATTEND Family Medicine
DX: E11.319 Type 2 diabetes mellitus with unspecified diabetic retinopathy without macular edema (principal); E11.21 Type 2 diabetes mellitus with diabetic nephropathy; H91.93 Unspecified hearing loss, bilateral; I73.9 Peripheral vascular disease, unspecified; I10 Essential (primary) hypertension
CPT/HCPCS: 36415; 80048; 82043; 82570; 83036

== ENCOUNTER 2023-06-20 08:22 | Outpatient (CLI) | payer MEDICARE, OTHER ==
--- NOTE | 2023-06-21 17:31 | Ultrasound Report ---
PROCEDURE: Arterial Duplex Lwr Ext BL INDICATIONS: PAD TECHNIQUE: Color and pulse Doppler interrogation was performed of both lower extremity arterial systems, with im age documentation. COMPARISON: None FINDINGS: Right lower extremity: Common femoral artery: 46 cm/sec, with monophasic flow. Deep femoral artery: 33 cm/sec, with monophasic flow. Proximal superficial femoral artery: 69 cm/sec, with monophasic flow. Mid superficial femoral artery: 48 cm/sec, with monophasic flow. Distal superficial femoral artery: 39 cm/sec, with monophasic flow. Popliteal artery: 19 cm/sec, with monophasic flow. Posterior tibial artery: 9 cm/sec, with monophasic flow. Anterior tibial artery/dorsalis pedis: 10 cm/sec, with monophasic flow. Coats-scale imaging description: Type and monophasic waveforms throughout. No focal hemodynamically s ignificant stenosis visualized, but inflow stenosis is suspected. Left lower extremity: Common femoral artery: 78 cm/sec, with biphasic flow. Deep femoral artery: 61 cm/sec, with biphasic flow. Proximal superficial femoral artery: 167 cm/sec, with biphasic flow. Mid superficial femoral artery: 121 cm/sec, with biphasic flow. Distal superficial femoral artery: 111 cm/sec, with biphasic flow. Popliteal artery: 54 cm/sec, with biphasic flow. Posterior tibial artery: 24 cm/sec, with biphasic flow. Anterior tibial artery/dorsalis pedis: 30 cm/sec, with biphasic flow. Coats-scale imaging description: A focal hemodynamically significant stenosis is present within the p roximal left SFA. IMPRESSION: 1. Dampened, slow flow within the right lower extremity. Findings are suspicious for an inflow stenos is likely within the right iliac artery. If further characterization is warranted, CTA with bilateral lower extremity runoff could be used. 2. Sonographic findings suggesting focal hemodynamically significant stenosis within the proximal lef t SFA. Reviewed by: Gloria Garcia MD on 06/21/2023 5:29 PM PST Approved by: Gloria Garcia MD on 06/21/2023 5:29 PM PST Station ID: [id number]
== END 2023-06-20 08:23 | disposition home or self-care (01) ==
LOC: DI 08:22
PROVIDERS: ATTEND Family Medicine
DX: I73.9 Peripheral vascular disease, unspecified (principal)
CPT/HCPCS: 93925

== ENCOUNTER 2023-07-26 08:17 | Outpatient (CLI) | payer MEDICARE, OTHER ==
[2023-07-26] MEDS ORDERED: iohexoL-300 100 ML VIAL ONE (08:35)
[2023-07-26 08:40] LABS: CREATININE 1.2 mg/dL (0.6-1.3)
[2023-07-26] MEDS ORDERED: iohexoL-300 150 ML BOTTLE ONE (09:28)
--- NOTE | 2023-07-26 11:18 | CT Report ---
PROCEDURE: Angio Abdomen Runoff BL INDICATIONS: CLAUDICATION DUE TO PVD CONTRAST: Omni 300 125ml TECHNIQUE: After the administration of intravenous contrast, a CT scan of the abdomen, pelvis and lower extremit ies (to the feet) was performed. Images were recorded and evaluated at appropriate window settings. R eformats: coronal and sagittal. For radiation dose reduction, the following was used: automated expos ure control, adjustment of mA and/or kV according to patient size. COMPARISON: None. FINDINGS: Image quality: Excellent. Abdominal aorta: There is very mild ectasia of the infrarenal abdominal aorta, which measures 2.2 cm . There is extensive soft plaque which results in approximately 60% stenosis. Right lower extremity: Common iliac artery: Occluded at its origin, without recanalization External iliac artery: Occluded with reconstitution at the level of the most distal aspect of the ext ernal iliac. Common femoral artery: Patent Superficial femoral artery: Extensive diffuse disease with calcifications and soft plaque and straigh t line flow. Popliteal artery: Diffuse at least moderate stenotic disease. Anterior tibial artery: Multifocal high-grade proximal stenoses. Occluded as above the calf. Peroneal artery: Patent mildly diseased vessel. Posterior tibial artery: Straight line flow at least to the ankle. Left lower extremity: Right lower extremity: Common iliac artery: Mild diffuse disease. External iliac artery: Severe focal proximal to mid external iliac artery stenosis. Common femoral artery: Mild to moderate midportion and distal aspects stenotic disease. Superficial femoral artery: Straight line flow. Moderate diffuse disease. Popliteal artery: Moderate diffuse disease. Anterior tibial artery: Occluded proximally Peroneal artery: Patent vessel with minimal disease. Posterior tibial artery: Patent at least to the ankle. OTHER: Lung bases and heart: Unremarkable. Liver: No solid mass. Gallbladder and biliary tree: No radiopaque stones or wall thickening. No biliary dilation. Spleen: No splenomegaly. Pancreas: No pancreatic ductal dilation. Adrenals: No adrenal nodule. Kidneys and ureters: No hydronephrosis. No renal cystic lesion which requires follow up. No solid mas s. Bowel and peritoneum: No bowel distension. No pathologic free fluid. Diverticulosis without evidence of diverticulitis. Lymph nodes: No central or retroperitoneal adenopathy. Vessels: No infrarenal aortic aneurysm. Reproductive organs: Severely enlarged prostate.. Bladder: No abnormal wall thickening, accounting for underdistention. Pelvic lymph nodes: No pelvic adenopathy by size criteria. Bones: No aggressive osseous abnormality. Other: No significant ventral or inguinal hernia. IMPRESSION: 1. The infrarenal abdominal aorta has an approximately 60% stenosis secondary to diffuse soft plaque. 2. 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 3. Focal severe left external iliac artery stenosis. 4. Right lower extremity runoff significant for extensive diffuse SFA disease, at least moderate popl iteal disease, anterior tibial artery occlusion, and two-vessel runoff at least to the ankle. 5. Left lower extremity runoff significant for a degree of common femoral stenotic disease, moderate diffuse SFA disease and popliteal disease, proximal anterior tibial artery occlusion, and two-vessel runoff, at least to the ankle. 6. Severely enlarged prostate. Recommend correlation with PSA and physical exam.. Reviewed by: Miguel Andrews MD on 07/26/2023 11:16 AM PDT Approved by: Miguel Andrews MD on 07/26/2023 11:16 AM PDT Station ID: [id number]
[2023-07-26] MEDS: iohexoL-300 150 ML BOTTLE IVP ONE (14:09)
== END 2023-07-26 08:18 | disposition home or self-care (01) ==
LOC: LAB 08:17
PROVIDERS: ATTEND Family Medicine
DX: I35.0 Nonrheumatic aortic (valve) stenosis (principal); I74.5 Embolism and thrombosis of iliac artery; I70.202 Unspecified atherosclerosis of native arteries of extremities, left leg; I70.201 Unspecified atherosclerosis of native arteries of extremities, right leg; N40.0 Benign prostatic hyperplasia without lower urinary tract symptoms
CPT/HCPCS: 36415; 82565

== ENCOUNTER 2024-01-16 10:45 | Outpatient (CLI) | payer MEDICARE, OTHER ==
[2024-01-16 11:08] LABS: CREATININE,URINE 50.6 mg/dL; MICROALBUM/CREATININE RATIO,UR 310.3 ug/mg (<30.0); MICROALBUMIN,URINE 15.7 mg/dL
[2024-01-16 11:12] LABS: CALCIUM 10.2 mg/dL (8.5-10.3); POTASSIUM 4.6 mmol/L (3.5-4.5)
[2024-01-16 11:40] LABS: ESTIMATED AVERAGE GLUCOSE 166 mg/dL (70-100); HEMOGLOBIN A1c% 7.4 % (4.27-6.07)
== END 2024-01-16 10:46 | disposition home or self-care (01) ==
LOC: LAB 10:45
PROVIDERS: ATTEND Family Medicine
DX: E11.21 Type 2 diabetes mellitus with diabetic nephropathy (principal)
CPT/HCPCS: 36415; 80048; 82043; 82570; 83036